=== PATIENT | male | born 1985 | race Two or more races ===

== ENCOUNTER 2024-11-10 01:25 | Emergency (ER) | payer SELFPAY ==
[2024-11-10 01:35] VITALS: BP 130/88; PULSE 88; RESP 20; TEMP 37.1; O2SAT 96; BMI 29.2
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
[2024-11-10] MEDS: DIPHTH,PERTUSS(ACELL),TET VAC 0.5 ML SYR- ADULT IMi (02:26)
[2024-11-10 02:45] VITALS: BP 133/94; PULSE 87; RESP 18; TEMP 37; O2SAT 98
== END 2024-11-10 02:45 ==
PROVIDERS: Emergency Provider Emergency Medicine
DX: S60.211A Contusion of right wrist, initial encounter (principal); S60.811A Abrasion of right wrist, initial encounter; V47.5XXA Car driver injured in collision with fixed or stationary object in traffic accident, initial encounter; Z23 Encounter for immunization
CPT/HCPCS: 90471; 90715; 99282